=== PATIENT | female | born 1955 | race Caucasian/White ===

== ENCOUNTER → 2022-12-26 10:45 | Outpatient (BNVA) | payer MEDICARE, BC, SELFPAY | PROVIDERS: Family Provider Nurse Practitioner Family; PCP Nurse Practitioner Family; Visit Provider Nurse Practitioner Family | DX: R39.9 Unspecified symptoms and signs involving the genitourinary system (principal); I10 Essential (primary) hypertension; N39.0 Urinary tract infection, site not specified | CPT/HCPCS: 80053; 80061; 81003; 83735; 84443; 85025 ==

== ENCOUNTER → 2024-05-26 13:49 | Outpatient (BNVA) | payer MEDICARE, BC, SELFPAY | PROVIDERS: Family Provider Nurse Practitioner Family; PCP Nurse Practitioner Family; Visit Provider Nurse Practitioner Family | DX: J40 Bronchitis, not specified as acute or chronic (principal); J81.1 Chronic pulmonary edema | CPT/HCPCS: 71046 ==

== ENCOUNTER → 2024-05-28 08:52 | Outpatient (BNVA) | payer MEDICARE, BC, SELFPAY | PROVIDERS: Family Provider Nurse Practitioner Family; Visit Provider Nurse Practitioner Family | DX: I10 Essential (primary) hypertension (principal) | CPT/HCPCS: 80053; 84443; 85025 ==

== ENCOUNTER 2024-06-19 07:57 | Outpatient (CLI) | payer MEDICARE, BC, SELFPAY ==
--- NOTE | 2024-06-19 08:30 | USCV_ITS ---
James Livingston Age: 68 Gender: F : 1955 Exam Date: 06/19/2024 08:57 Ordering Phys: Michelle Tobar COUNTER HELP-C Technologist: Omar Durant Exam Location: [facility] [place] Indication: cardiomegaly BP: 150 / 112 HR: 103 Rhythm: Sinus Technical Quality: Adequate MEASUREMENTS (Male / Female) Normal Values 2D ECHO LV Diastolic Diameter PLAX 4.5 cm 4.2 - 5.9 / 3.9 - 5.3 cm IVS Diastolic Thickness 1.9 cm 0.6 - 1.0 / 0.6 - 0.9 cm IVS Systolic Thickness 1.9 cm LVPW Diastolic Thickness 1.7 cm 0.6 - 1.0 / 0.6 - 0.9 cm LVPW Systolic Thickness 2.0 cm LVOT Diameter 2.1 cm LV Ejection Fraction 2D Teich 72.9 % LV Ejection Fraction MOD 4C 76.1 % LV Ejection Fraction MOD 2C 72.2 % LV Ejection Fraction 2C AL 72.3 % LA Diameter 4.2 cm RA Systolic Volume 4C AL 28.2 ml RA Systolic Volume 4C MOD 28.3 ml LA Sys Volume AL 29.3 cm cubed LA Sys Volume Index AL 13.6 cm cubed/m squared Aorta at Sinotubular Diameter 2.4 cm IVC Diameter 1.5 cm M-MODE LA Ao Ratio MM 1.4 AV Cusp Separation MM 1.0 cm DOPPLER AV Peak Velocity 141.3 cm/s LVOT Peak Velocity 133.0 cm/s AV Area Cont Eq vti 3.7 cm squared AV Area Cont Eq pk 3.1 cm squared MV Peak Velocity 145.0 cm/s MV Area PHT 8.4 cm squared Mitral E to A Ratio 0.5 TV Peak Velocity 156.0 cm/s TR Peak Velocity 171.0 cm/s TR Peak Gradient 11.7 mmHg TR Mean Velocity 139.0 cm/s TR Mean Gradient 8.1 mmHg TR Velocity Time Integral 40.7 cm PV Peak Velocity 112.0 cm/s RV Ejection Time 0.2 s FINDINGS Left Ventricle Normal left ventricular size, systolic function and wall thickness, with no regional wall motion abnormalities. Left ventricular ejection fraction is estimated at 55%. Grade I/IV diastolic dysfunction (abnormal relaxation filling pattern), normal to mildly elevated filling pressures. Right Ventricle The right ventricle is normal in size and function. Right Atrium The right atrium is normal in size. Left Atrium The left atrium is normal in size. Mitral Valve Structurally normal mitral valve without significant stenosis or prolapse. There is no mitral regurgitation. Aortic Valve Structurally normal aortic valve without significant sclerosis or stenosis. There is no aortic regurgitation. Tricuspid Valve Structurally normal tricuspid valve without significant stenosis or regurgitation. Pulmonary artery systolic pressure is normal. Pulmonic Valve Structurally normal pulmonic valve without significant stenosis. There is no pulmonic regurgitation. Pericardium Normal pericardium without effusion. Aorta Normal ascending aorta dimension. IVC The inferior vena cava appears normal. CONCLUSIONS Normal left ventricular size, systolic function and wall thickness, with no regional wall motion abnormalities. Left ventricular ejection fraction is estimated at 55%. Grade I/IV diastolic dysfunction (abnormal relaxation filling pattern), normal to mildly elevated filling pressures. There is no pericardial effusion. No significant valve abnormalities. Right atrial pressure is around 5 mm of mercury. Vincent Oakes MD (Electronically Signed) Final Date: 19 June 2024 16:05 S
== END 2024-06-19 07:58 | disposition home or self-care (01) ==
PROVIDERS: Family Provider Nurse Practitioner Family; PCP Nurse Practitioner Family; Visit Provider Nurse Practitioner Family
DX: I51.7 Cardiomegaly (principal); R06.02 Shortness of breath; I10 Essential (primary) hypertension; R93.1 Abnormal findings on diagnostic imaging of heart and coronary circulation
CPT/HCPCS: 93306

== ENCOUNTER 2024-06-19 18:47 | Inpatient (IN) | payer MEDICARE, BC, SELFPAY ==
[2024-06-19] VITALS (14 sets, daily range): BP systolic 133–205; BP diastolic 75–112; PULSE 103–125; RESP 18–31; TEMP 36.4; O2SAT 74–94; BMI 40.2
--- NOTE | 2024-06-19 18:55 | ECG_ITS ---
[facility] Test Date: 2024-06-19 Pat Name: James Livingston Department: Room: Gender: Female Material Scheduler: : 1955 Requested By: Brandon Wilder Order Number: [id number] Paola MD: Alejandro Chatterjee M.D. Measurements Intervals [place] Rate: 124 P: 63 DE: 142 QRS: 36 QRSD: 86 T: 77 QT: 325 QTc: 467 Interpretive Statements SINUS TACHYCARDIA MODERATE ST DEPRESSION [0.05+ mV ST DEPRESSION] No previous ECG available for comparison Electronically Signed On 06-20-2024 13:17:44 MAGNET VALVE ASSEMBLER by Alejandro Chatterjee M.D. [email or web address]
--- NOTE | 2024-06-19 19:07 | XRR_ITS ---
PROCEDURE INFORMATION: Exam: XR Chest Exam date and time: 06/19/2024 7:23 PM Age: 68 years old Clinical indication: Cough and shortness of breath; SOB; Cough TECHNIQUE: Imaging protocol: Radiologic exam of the chest. Views: 1 view. COMPARISON: CR XR chest 2V* [id number] 05/26/2024 1:54 PM FINDINGS: Lungs: No focal consolidation. Pleural spaces: No evidence of pneumothorax. No evidence of pleural effusion. Heart/Mediastinum: Cardiomediastinal silhouette is within normal limits. Bones/joints: No evidence of acute osseous abnormality. XR/XR chest 1V portable [id number] IMPRESSION: 1. No acute cardiopulmonary abnormality.
--- NOTE | 2024-06-19 19:14 | ED_ITS ---
HPI - SOB/Dyspnea 2 General: Chief Complaint: Shortness of Breath/Dyspnea Stated Complaint: rapid Heart rate low o2 wheezing Time Seen by Provider: 06/19/24 19:06 History of Present Illness: HPI Narrative: 68-year-old female with a history of tob acco abuse in remission for 5 years, hypertension and obesity who presents to the emergency room with shortness of breath. She says this has been going on since about January but much worse over the last 2 weeks. She says she was not diagnosed with COPD, however recently she was started on albuterol and budesonide. She was also started on some Lasix. On presentation here she is hypoxic with O2 in the low 70s. She is tachycardic. She is hypertensive. She does not know of any fevers. Afebrile here. No lower extremity pain or swelling. No calf pain. She says her chest feels tight when she gets real short of breath but she has had no chest pain. Related Data Previous Rx's Medication Instructions Recorded omega-3 fatty acids 1,000 mg 1,000 mg PO DAILY #90 caps 01/03/23 capsule albuterol sulfate 90 mcg/actuation 2 puff inhalation QID PRN 05/06/24 aerosol inhaler shortness of breath or wheezing #6.7 grams doxycycline hyclate 100 mg capsule 100 mg PO BID #20 caps 05/06/24 losartan 50 mg tablet 50 mg PO DAILY #90 tabs 05/06/24 promethazine-DM 6.25 mg-15 mg/5 mL 5 - 10 ml PO Q6H PRN cough #240 mL 05/06/24 oral syrup albuterol sulfate 2.5 mg/3 mL 2.5 mg (3 mL) inhalation QID PRN 05/26/24 (0.083 %) solution for nebulization shortness of breath or wheezing #75 mL budesonide-formoterol HFA 160 2 puff inhalation BID #10.2 grams 05/26/24 mcg-4.5 mcg/actuation aerosol inhaler (Symbicort) levofloxacin 750 mg tablet 750 mg PO DAILY #7 tabs 05/26/24 furosemide 20 mg tablet 20 mg PO DAILY #30 tabs 05/28/24 potassium chloride 10 mEq 10 meq PO DAILY #30 tabs 05/28/24 tablet,extended release (Klor-Con) prednisone 20 mg tablet 20 mg PO BID #10 tabs 05/28/24 Allergies Allergy/AdvReac Type Severity Reaction Status Date / Time No Known Allergies Allergy Verified 06/19/24 18:54 Review of Systems 2 Narrative: Constitutional symptoms: Negative except as documented in HPI. Skin symptoms: Negative except as documented in HPI. Eye symptoms: Negative except as documented in HPI. ENMT symptoms: Negative except as documented in HPI. Respiratory symptoms: Negative except as documented in HPI. Cardiovascular symptoms: Negative except as documented in HPI. Gastrointestinal symptoms: Negative except as documented in HPI. Genitourinary symptoms: Negative except as documented in HPI. Musculoskeletal symptoms: Negative except as documented in HPI. Neurologic symptoms: Negative except as documented in HPI. Psychiatric symptoms: Negative except as documented in HPI. Endocrine symptoms: Negative except as documented in HPI. PFSH ED 2 PFSH: Social History Smoking and tobacco/nicotine status: former use of tobacco/nicotine Quit status (tobacco/nicotine): has quit using Year quit tobacco: 2018 Former quit date comment: ppd x 30 yrs Second hand smoke exposure: Yes Alcohol intake: never Lives independently: Yes Household members: none Marital status: / Current occupation: Part-time [employer] Current gender identity: Female Special parish needs: No Agree to transfusion: Yes Physical Exam 2 Narrative: EXAM NARRATIVE: General: Alert, moderate distress. Skin: Warm, dry. Head: Normocephalic, atraumatic. Neck: Supple, trachea midline. Eye: Extraocular movements are intact. Ears, nose, mouth and throat: Oral mucosa moist. Cardiovascular: Regular rate and rhythm, Normal peripheral perfusion. Respiratory: coarse, scattered wheeze, moderate increased wob. tachypnea, prolonged expiratory phase. breath sounds are equal, Symmetrical chest wall expansion. Gastrointestinal: Soft, Nontender, Non distended, Normal bowel sounds. Musculoskeletal: Normal ROM, no deformity. Neurological: Alert and oriented to person, place, time, and situation, No focal neurological deficit observed. Psychiatric: Cooperative, appropriate mood & affect. Course 2 Vital Signs: Vital signs: Vital Signs Temperature 97.6 F 06/19/24 18:54 Pulse Rate 117 H 06/19/24 20:49 Respiratory Rate 20 H 06/19/24 20:49 Blood Pressure 205/112 06/19/24 18:54 Pulse Oximetry 92 06/19/24 20:49 Oxygen Delivery Me thod Nasal Cannula 06/19/24 20:49 Oxygen Flow Rate 1 06/19/24 20:49 MDM - SOB/Dyspnea Medical Decision Making Differential diagnosis for patient with shortness of breath includes but is not limited to and based on the above HPI, review of systems and physical exam: Pneumonia. Bronchitis. Asthma or COPD with acute exacerbation. Acute coronary syndrome / IN. Pulmonary embolism. Anxiety. Congestive heart failure. Viral infections including influenza and Covid-19. Atrial fibrillation. Anxiety. Pleural effusion. Pneumothorax. Orders placed to evaluate differential diagnosis based on the above differential, HPI and physical exam EKG: Time 185. Rate 124. Sinus tachycardia, moderate diffuse ST depression, no ectopy, normal UT & QRS intervals, This was reviewed and interpreted by myself the ER physician at 1858 Chest x-ray: No acute process. No infiltrate. No pneumothorax. This was reviewed and interpreted by myself the emergency room physician. I also reviewed the radiology report. Lab Review: Laboratory results were reviewed and interpreted by myself the emergency room physician. Mild leukocytosis. No anemia. No renal failure. AB.3 with an O2 sat of 96% on 1 L. Although x-ray at this time she was receiving an updraft. I reviewed the patient's medical record. Reexamination: After breathing treatments patient still has moderate increased work of breathing, severe wheeze and tight lungs. She still requiring some oxygen. Apparently at rest she does improved some she is only requiring 1 L. However she was 74% on presentation. We discussed admission. She is not fond of this but she will come in. Consultation: I spoke with Dr. Stahl who is on-call for the hospitalist service who agrees to admission. Assessment and plan: COPD with acute exacerbation Hypoxemia ?IV Solu-Medrol, 2 updrafts. Requiring oxygen. -I discussed the patient with the hospitalist on-call who is admitting the patient. - Discussed findings and plan with patient. Answered any questions. - All laboratory values were reviewed and interpreted personally by myself, the ER physician - All imaging was reviewed and interpreted personally by myself, the ER physician. - Evaluation and treatment of this problem were appropriate in the emergency setting Critical care -I spent a total of >35 minutes of critical care time managing the patient, independent of any other practitioner. -The time involved in the performance of separately reportable procedures was not counted towards critical care time. Lab Data 06/19/24 19:20 06/19/24 19:20 Labs/Radiology: Radiology Impressions Chest X-Ray 06/19/24 19:07 IMPRESSION: 1. No acute cardiopulmonary abnormality. Laboratory Results WBC 12.17 10^3/uL (3.29-11.43) H 06/19/24 19:20 RBC 4.95 10^6/uL (3.85-5.65) 06/19/24 19:20 Hgb 14.20 g/dL (11.27-16.99) 06/19/24 19:20 Hct 43.9 % (36-47) 06/19/24 19:20 MCV 88.7 fl (85-98) 06/19/24 19:20 MCH 28.7 pg (27-33) 06/19/24 19:20 MCHC 32.3 g/dL (30-55) 06/19/24 19:20 RDW 12.8 % (12.1-15.1) 06/19/24 19:20 Plt Count 304 10^3/cmm (157-399) 06/19/24 19:20 MPV 9.2 fL (7.4-10.4) 06/19/24 19:20 Neut % (Auto) 60.1 % 06/19/24 19:20 Lymph % (Auto) 26.4 % 06/19/24 19:20 [place] % (Auto) 6.7 % 06/19/24 19:20 Eos % (Auto) 6.3 % 06/19/24 19:20 Baso % (Auto) 0.3 % 06/19/24 19:20 Neut # (Auto) 7.30 10^3/uL (1.8-7.7) 06/19/24 19:20 Lymph # (Auto) 3.2 10^3/uL (0.8-4.8) 06/19/24 19:20 [place] # (Auto) 0.8 10^3/uL (0.2-0.9) 06/19/24 19:20 Eos # (Auto) 0.8 10^3/uL (0.0-0.8) 06/19/24 19:20 Baso # (Auto) 0.0 10^3/uL (0.0-0.1) 06/19/24 19:20 Nucleated RBC % (auto) 0 % 06/19/24 19:20 Nucleated RBCs # 0.0 /100WBC 06/19/24 19:20 D-Dimer 0.68 ug/mLFEU (0-0.59) H 06/19/24 19:20 Specimen Type Arterial 06/19/24 20:48 Sample Site Brachial, right 06/19/24 20:48 ABG pH 7.37 (7.35-7.45) 06/19/24 20:48 ABG pCO2 50.3 mmHg (35-45) H 06/19/24 20:48 ABG pO2 64.5 mmHg (80.0-100.0) L 06/19/24 20:48 ABG HCO3 29.2 mmol/L (22-26) H 06/19/24 20:48 ABG O2 Saturation 92.8 06/19/24 20:48 ABG Base Excess 3.0 mmol/L (-2.0-2.0) H 06/19/24 20:48 Aleks Test Pos 06/19/24 20:48 A-a O2 Gradient 3.1 mmHg (5-10) L 06/19/24 20:48 Hematocrit 41.2 % (37-47) 06/19/24 20:48 Hgb O2 Saturation 96.0 % (95-100) 06/19/24 20:48 Carboxyhemoglobin 0.7 %THgb (0.4-20.1) 06/19/24 20:48 Methemoglobin < 0.0 % (0.4-1.5) L 06/19/24 20:48 Total Hemoglobin 13.4 g/dL (12-16) 06/19/24 20:48 Sodium 142.0 mmol/L (131-143) 06/19/24 20:48 Potassium 4.0 mmol/L (3.5-5.0) 06/19/24 20:48 Glucose 153.0 mg/dL (70-115) H 06/19/24 20:48 Ionized Calcium 1.2 mmol/L (1.1-1.4) 06/19/24 20:48 O2 Delivery Device Nc 06/19/24 20:48 O2 Liters/Min 1.0 % 06/19/24 20:48 Cured Meat Packing Supervisor ID [email or web address] 06/19/24 20:48 Sodium 140 mmol/L (136-145) 06/19/24 19:20 Potassium 3.9 mmol/L (3.5-5.1) 06/19/24 19:20 Chloride 101 mmol/L (98-107) 06/19/24 19:20 Carbon Dioxide 24 mmol/L (22-29) 06/19/24 19:20 Anion Gap 18.9 (5-19) 06/19/24 19:20 BUN 16 mg/dL (8-23) 06/19/24 19:20 Creatinine 0.5 mg/dL (0.5-0.9) 06/19/24 19:20 GFR Calculation 122.3 mL/min (90-130) 06/19/24 19:20 Glucose 159 mg/dL (65-115) H 06/19/24 19:20 Calculated Osmolality 295 mOsm/kg (285-295) 06/19/24 19:20 Lactic Acid 1.4 mmol/L (0.5-2.2) 06/19/24 19:20 Calcium 9.4 mg/dL (8.5-10.5) 06/19/24 19:20 Total Bilirubin 0.4 mg/dL (0.15-1.2) 06/19/24 19:20 AST 26 U/L (0-32) 06/19/24 19:20 ALT 26 U/L (0-33) 06/19/24 19:20 Alkaline Phosphatase 93 U/L (35-105) 06/19/24 19:20 Troponin T Baseline 10 ng/L (0-10) 06/19/24 19:20 C-Reactive Protein 19.2 mg/L (0.0-4.9) H 06/19/24 19:20 Total Protein 7.5 g/dL (6.6-8.7) 06/19/24 19:20 Albumin 4.3 g/dL (3.5-5.2) 06/19/24 19:20 Globulin 3.2 g/dL (1.3-4.6) 06/19/24 19:20 Procalcitonin 0.05 ng/mL (0-0.5) 06/19/24 19:20 All radiology interpretation(s) finalized by discharge Discharge Plan Discharge Patient Disposition: Admitted As Inpatient Clinical Impression: COPD with acute exacerbation, Hypoxemia Condition: Stable Coding Level of Care Code ED Client Project Coordinator for Keke Parra
[2024-06-19 19:39] LABS: Basophils % 0.3 %; Eosinophils # 0.8 10^3/uL (0.0-0.8); Eosinophils % 6.3 %; Hematocrit 43.9 % (36-47); Lymphocytes # 3.2 10^3/uL (0.8-4.8); Lymphocytes % 26.4 %; Mean Corpuscular HGB Conc 32.3 g/dL (30-55); Mean Corpuscular Hemoglobin 28.7 pg (27-33); Mean Corpuscular Volume 88.7 fl (85-98); Mean Platelet Volume 9.2 fL (7.4-10.4); Monocytes # 0.8 10^3/uL (0.2-0.9); Monocytes % 6.7 %; Neutrophils % 60.1 %; Nucleated Red Blood Cells % 0 %; Platelet Count 304 10^3/cmm (157-399); Red Blood Count 4.95 10^6/uL (3.85-5.65); Red Cell Distribution Width 12.8 % (12.1-15.1); White Blood Count 12.17 10^3/uL (3.29-11.43)
[2024-06-19 19:47] LABS: D Dimer 0.68 ug/mLFEU (0-0.59)
[2024-06-19 19:49] LABS: Lactic Sepsis W/Reflex 1.4 mmol/L (0.5-2.2)
[2024-06-19 19:51] LABS: Troponin(5th) Baseline 10 ng/L (0-10)
[2024-06-19 20:01] LABS: Procalcitonin 0.05 ng/mL (0-0.5)
[2024-06-19 20:12] LABS: Alanine Aminotransferase 26 U/L (0-33); Albumin Level 4.3 g/dL (3.5-5.2); Alkaline Phosphatase 93 U/L (35-105); Anion Gap 18.9 (5-19); Aspartate Amino Transferase 26 U/L (0-32); Blood Urea Nitrogen 16 mg/dL (8-23); C Reactive Protein 19.2 mg/L (0.0-4.9); Calcium 9.4 mg/dL (8.5-10.5); Carbon Dioxide 24 mmol/L (22-29); Chloride 101 mmol/L (98-107); Creatinine Clr Calc Pharmacy 73.3169; Globulin 3.2 g/dL (1.3-4.6); Glomerular Filtration Rate 122.3 mL/min (90-130); Glucose 159 mg/dL (65-115); Osmolality Calculated 295 mOsm/kg (285-295); Potassium 3.9 mmol/L (3.5-5.1); Sodium 140 mmol/L (136-145); Total Bilirubin 0.4 mg/dL (0.15-1.2); Total Protein 7.5 g/dL (6.6-8.7)
[2024-06-19] MEDS: methylPREDNISolone sod succ 125 mg/2 mL INJ IVP (20:43)
[2024-06-19] MEDS: ipratropium-albuterol 3 mL Neb INHALATION (20:43)
[2024-06-19] MEDS: albuterol 2.5 mg/3 mL Neb INHALATION (20:43)
[2024-06-19 20:54] LABS: ABG PCO2 50.3 mmHg (35-45); ABG PH Result 7.37 (7.35-7.45); Alveolar-Arterial Oxygen Gradi 3.1 mmHg (5-10); Arterial Blood Gas Hematocrit 41.2 % (37-47); Blood Gas Allen Test Pos; Blood Gas Sample Site Brachial, right; Blood Gas Sample Type Arterial; Carboxyhemoglobin 0.7 %THgb (0.4-20.1); HCO3 ABG 29.2 mmol/L (22-26); Ionized Calcium Level - ABG 1.2 mmol/L (1.1-1.4); Methemoglobin < 0.0 % (0.4-1.5); Oxygen Device NC; Oxygen Saturation ABG 92.8; PO2 ABG 64.5 mmHg (80.0-100.0); Total Hemoglobin 13.4 g/dL (12-16)
[2024-06-19 21:18] LABS: Troponin 5 2HR 11.57 ng/L (0-10); Troponin 5 2HR Delta 1.57 ABS# (0-10)
[2024-06-19 21:30] LABS: Covid PCR NEGATIVE (Negative); Influenza A NEGATIVE (Negative); Influenza B NEGATIVE (Negative); Respiratory Syncytial Virus Ce NEGATIVE (Negative)
[2024-06-19 22:30] LABS: Bilirubin Urine Negative (Negative); Blood Urine Negative (Negative); Glucose Urine UA Negative (Normal); Ketones Urine Trace (Negative); Leukocyte Esterase Urine Negative (Negative); Nitrate Urine Negative (Negative); Protein Urine 1+ (Negative); Specific Gravity, Urine 1.025 (1.005-1.030); Urine Appearance Turbid (CLEAR); pH Urine 5.5 (5-7)
[2024-06-19 22:35] LABS: Bacteria Urine Trace /hpf; Hyaline Casts Urine 0.81 /lpf; RBC Urine 0-2 /hpf (0-2); Universal Test for UA Present (0)
--- NOTE | 2024-06-19 22:44 | P.HP_ITS ---
Providers/Chief Complaint 2 Admitting Physician: Vincent Stahl MD Primary Care Provider: SPENCER Waldrop-Lucy Chief Complaint: rapid Heart rate low o2 wheezing History of Present Illness James Livingston is a 68 year old female who does not have official diagnosis of COPD, quit smoking 5 years ago, has not done a pulmonary function test, has had multiple rounds of antibiotics and steroids since January presenting with worsening of shortness of breath. Patient was extremely wheezing with increased work of breathing in the ER patient received the treatment and wheezing improved at the time of evaluation she is on 2 L nasal cannula. Patient is not endorsing significantly high fever, endorsing excessive coughing, urine incontinence with cough, pleuritic pain, excessive wheezing at minimal exertion. Patient is stating that before January 2024 she was very active after ID infection she has not been very active. Does not use oxygen at baseline. In past few weeks she has had multiple rounds of antibiotics and steroids. Every time she uses steroid she will get better and then at the end she will get worse. She has been put on budesonide inhaler by the PCP. Along albuterol. She is still not on appropriate inhaler regimen considering underlying COPD. At the time of evaluation I have requested D-dimer however secondary to recurrent infections needing antibiotics and steroids I would request CT chest Patient is afebrile at the time of my evaluation, count 2 L no active chest pain or worsening shortness of breath Patient recently finished steroid course Patient was asking if she could be discharged in the morning Resp panel is negative Review of Systems 2 Const: Reports: fever(s) and chills Eyes: Denies: change in vision ENMT: Denies: throat pain Card: Denies: chest pain Resp: Reports: dyspnea GI: Denies: abdominal pain : Denies: flank pain Musc: Reports: back pain Medications/Allergies Home Medications Medication Instructions Recorded Confirmed Last Taken Type omega-3 fatty acids 1,000 mg 1,000 mg PO DAILY #90 caps 01/03/23 05/28/24 Unknown Rx capsule albuterol sulfate 90 mcg/actuation 2 puff inhalation QID PRN 05/06/24 05/28/24 Unknown Rx aerosol inhaler shortness of breath or wheezing #6.7 grams doxycycline hyclate 100 mg capsule 100 mg PO BID #20 caps 05/06/24 05/28/24 Unknown Rx losartan 50 mg tablet 50 mg PO DAILY #90 tabs 05/06/24 05/28/24 Unknown Rx promethazine-DM 6.25 mg-15 mg/5 mL 5 - 10 ml PO Q6H PRN cough #240 mL 05/06/24 05/28/24 Unknown Rx oral syrup albuterol sulfate 2.5 mg/3 mL 2.5 mg (3 mL) inhalation QID PRN 05/26/24 05/28/24 Unknown Rx (0.083 %) solution for nebulization shortness of breath or wheezing #75 mL budesonide-formoterol HFA 160 2 puff inhalation BID #10.2 grams 05/26/24 05/28/24 Unknown Rx mcg-4.5 mcg/actuation aerosol inhaler (Symbicort) levofloxacin 750 mg tablet 750 mg PO DAILY #7 tabs 05/26/24 05/28/24 Unknown Rx furosemide 20 mg tablet 20 mg PO DAILY #30 tabs 05/28/24 05/28/24 Unknown Rx potassium chloride 10 mEq 10 meq PO DAILY #30 tabs 05/28/24 05/28/24 Unknown Rx tablet,extended release (Klor-Con) prednisone 20 mg tablet 20 mg PO BID #10 tabs 05/28/24 05/28/24 Unknown Rx Allergies Allergy/AdvReac Type Severity Reaction Status Date / Time No Known Allergies Allergy Verified 06/19/24 18:54 PFSH Acute 2 PFSH: Medical History (Updated 06/19/24 @ 23:09 by Vincent Stahl MD) Influenza A Social History Smoking and tobacco/nicotine status: former use of tobacco/nicotine Quit status (tobacco/nicotine): has quit using Year quit tobacco: 2019 Former quit date comment: ppd x 30 yrs Second hand smoke exposure: Yes Alcohol intake: never Lives independently: Yes Household members: none Marital status: / Current occupation: Part-time [employer] Current gender identity: Female Special parish needs: No Agree to transfusion: Yes Vitals/I&O/Wt Last Vital Signs Temp 97.6 F 06/19/24 18:54 Pulse 105 H 06/19/24 21:44 Resp 31 H 06/19/24 21:44 BP 152/98 06/19/24 21:44 Pulse Ox 92 06/19/24 21:44 O2 Del Method Nasal Cannula 06/19/24 20:49 O2 Flow Rate 1 06/19/24 20:49 06/19/24 06/19/24 06/19/24 06:59 14:59 22:59 Intake Total 0 / 0 Balance 0 / 0 Weight last 48 hrs Weight 99.79 kg Physical Exam 2 Narrative: Awake and alert Tachycardia Shortness of breath on minimal exertion Currently on 2 L Mild wheezing with diminished airflow at the base of the lungs Pleasant and cooperative Anxious. 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 Patient still not on appropriate inhalers She will need combination of LAMA LABA ICS For now secondary tachycardia we will put her on ipratropium, Xopenex and budesonide Add IV steroids Request CT chest for tachycardia Tachycardia could be related to use of albuterol Chest x-ray does not show any infiltrate Hold off on antibiotics for now Respiratory panel is negative Will request BNP: Patient stating that her echo was done in the morning, echo showing 55% EF with grade 1 diastolic function: Patient will need home oxygen evaluation at the time of discharge Full code Cardiac diet Continue antihypertensive regimen for essential hypertension history Attestations 2 Medical Necessity Statement*: Anticipating discharge within 48 hours Diagnoses Hypertension I10 COPD with acute exacerbation J44.1 Hypoxemia R09.02
[2024-06-19 23:09] LABS: Urine Color Orange (Yellow)
[2024-06-19 23:10] LABS: Add Urine Culture? No
[2024-06-19] MEDS: ipratropium 0.5 mg/2.5 mL Neb INHALATION (23:36)
[2024-06-19] MEDS: levalbuterol 1.25 mg/3 mL Neb INHALATION (23:36)
[2024-06-19] MEDS: guaiFENesin-codeine UDC 10 mL 5 ML PO (23:41)
[2024-06-19] MEDS: dilTIAZem ER (12HR) 60 mg Capsule PO (23:41)
[2024-06-19] MEDS: acetaminophen 500 mg Tablet PO (23:41)
[2024-06-20] VITALS (13 sets, daily range): BP systolic 131–178; BP diastolic 61–89; PULSE 71–110; RESP 15–20; TEMP 36.4–37.1; O2SAT 91–96
[2024-06-20 00:11] LABS: NT Pro B Type Natriuretic Pept 238 pg/mL (0-125); Thyroid Stimulating Hormone 0.82 uIU/mL (0.27-4.20)
[2024-06-20 00:23] LABS: Estmated Average Glucose 160; Hemoglobin A1C 7.2 % (4.0-6.0)
[2024-06-20 02:15] LABS: Troponin 5 6HR 8.78 ng/L (0-10)
[2024-06-20 02:18] LABS: Troponin 5 6HR Delta -1.22 ng/L (0-12)
[2024-06-20] MEDS: ipratropium 0.5 mg/2.5 mL Neb INHALATION ×5 (03:33→21:39)
[2024-06-20 05:07] LABS: Vitamin B12 1188 pg/mL (232-1245)
[2024-06-20 05:29] LABS: Basophils % 0.2 %; Eosinophils % 0.1 %; Hematocrit 43.5 % (36-47); Lymphocytes % 11.4 %; Mean Corpuscular HGB Conc 31.3 g/dL (30-55); Mean Corpuscular Hemoglobin 28.8 pg (27-33); Mean Platelet Volume 9.5 fL (7.4-10.4); Monocytes # 0.1 10^3/uL (0.2-0.9); Monocytes % 0.5 %; Neutrophils # 7.97 10^3/uL (1.8-7.7); Neutrophils % 87.5 %; Nucleated Red Blood Cells % 0 %; Platelet Count 300 10^3/cmm (157-399); Red Blood Count 4.73 10^6/uL (3.85-5.65); Red Cell Distribution Width 12.8 % (12.1-15.1); White Blood Count 9.12 10^3/uL (3.29-11.43)
[2024-06-20 05:57] LABS: Anion Gap 18.3 (5-19); Blood Urea Nitrogen 16 mg/dL (8-23); C Reactive Protein 21.2 mg/L (0.0-4.9); Calcium 9.6 mg/dL (8.5-10.5); Carbon Dioxide 24 mmol/L (22-29); Chloride 98 mmol/L (98-107); Glomerular Filtration Rate 99.1 mL/min (90-130); Glucose 248 mg/dL (65-115); Magnesium 2.1 mg/dL (1.7-2.3); Osmolality Calculated 291 mOsm/kg (285-295); Potassium 4.3 mmol/L (3.5-5.1); Sodium 136 mmol/L (136-145)
--- NOTE | 2024-06-20 08:00 | CTR_ITS ---
PROCEDURE INFORMATION: Exam: CTA Chest With Contrast Exam date and time: 06/20/2024 7:53 AM Age: 68 years old Clinical indication: Hyperventilation; Additional info: Hypoxia TECHNIQUE: Imaging protocol: Computed tomographic angiography of the chest with contrast. Exam focused on the arteries. 3D rendering (Not supervised by radiologist): MIP and/or 3D reconstructed images were created by the technologist. Radiation optimization: All CT scans at this facility use at least one of these dose optimization techniques: automated exposure control; mA and/or kV adjustment per patient size (includes targeted exams where dose is matched to clinical indication); or iterative reconstruction. Contrast material: OMNIPAQUE 350; Contrast volume: 80 ml; Contrast route: INTRAVENOUS (IV); COMPARISON: CR (CHEST, ) 06/19/2024 7:23 PM RADIATION DOSE METRICS: Total DLP (mGy-cm): 486.92 FINDINGS: Pulmonary arteries: Dilated right pulmonary artery suggestive of pulmonary hypertension. No pulmonary emboli. Aorta: Unremarkable. No aortic aneurysm. No aortic dissection. Other arteries: Calcified atheromas of the visualized arteries. Lungs: Unremarkable. No consolidation. No masses. Pleural spaces: Unremarkable. No pneumothorax. No pleural effusion. Heart: Unremarkable. No cardiomegaly. No pericardial effusion. Coronary arteries: There is moderate atherosclerotic calcification of the coronary arteries. Lymph nodes: Unremarkable. No enlarged lymph nodes. Liver: There is a diffuse decrease in hepatic parenchymal density, consistent with fatty infiltration. Bones/joints: The thoracic spine demonstrates mild degenerative changes at multiple levels. There are mild degenerative changes of the glenohumeral joint. Soft tissues: Right erector spinae lipoma measuring 5.7 x 2[address]/CT angio chest PE protcl [id number] IMPRESSION: 1. No pulmonary embolism. 2. No acute infiltrates. 3. Hepatic steatosis.
[2024-06-20] MEDS: iohexol 350 mg/mL 500 mL Btl (per mL) IV (08:01)
[2024-06-20] MEDS: levalbuterol 1.25 mg/3 mL Neb INHALATION ×4 (08:56→21:39)
[2024-06-20] MEDS: budesonide 0.5 mg/2 mL Neb INHALATION ×2 (08:56→21:39)
[2024-06-20] MEDS: sennosides-docusate Tablet 2 TAB PO (09:26)
[2024-06-20] MEDS: dilTIAZem ER (12HR) 60 mg Capsule PO ×2 (09:26→17:13)
[2024-06-20] MEDS: methylPREDNISolone sod succ 40 mg/mL INJ IVP ×2 (09:27→17:12)
[2024-06-20] MEDS: losartan 50 mg Tablet PO (09:31)
--- NOTE | 2024-06-20 11:35 | PC.CHAP ---
Pastoral Care Encounter/Spiritual Assessment Type of Contact [] Declined shingles roofer helper visit [] Patient/Family/Request visit [] Outpatient visit [] Follow-up visit [] Physician referral [] Code/Alert [X] Routine visit [] Staff referral [] Actively dying [] Patient sleeping [] Family support [] [] Out of room [] Palliative care [] [] Receiving care in room [] Pre-surgical visit [] Trauma [] Long length of stay [] ICU visit [] Other: Relational/Emotional Strength [X] Patient feels connected with others/family/visitors/staff [] Distress [] Loneliness/isolation [] Abandonment Spirituality of Patient [X] Person of [place] [X] Attends Catholic of their [place] [X] Believes in Prayer [X] Reads Bible or Denominational materials [] There are Spiritual issues to be addressed General Science Teacher Interventions [X] Prayer [X] Active listening [X] Non-anxious presence [] Spiritual/emotional support [] Crisis/trauma care [] Spiritual counseling [] Bereavement support [] Provided bereavement packet [] Provided Bible/devotional materials [] Provided toy/stuffed animal, coloring book to patient or family member [] Provided Communion [] Anointing/[place] [] Salvation [] Completed spiritual assessment [] Other: Impact on Illness or Injury [] Angry [] Fearful [] Anxious [] Often cries [] Exhaustion [] Unable to work [] Unable to attend hinduism [] Unable to walk/stand [] Unable to read [] Unable to drive [] Unable to eat/drink [] Unable to sleep [] Unable to be with family [] Patient intubated [] Other: Summary Prayer + Staff Time spent with patient 20 Min
[2024-06-20] MEDS: acetaminophen 500 mg Tablet PO ×2 (13:45→19:10)
[2024-06-20] MEDS: guaiFENesin 100 mg/5 mL UDC 10 mL 200 MG PO ×2 (13:58→17:13)
--- NOTE | 2024-06-20 16:54 | PM.PN ---
Subjective Subjective: Seen this morning. No acute events overnight. CTA chest ruled out PE Patient is on 2 L nasal cannula. He saturating 94%. Is bringing up brown phlegm. Negative for COVID flu RSV. Vitals/I&O/Wt Last Vital Signs Temp 98.3 F 06/20/24 12:00 Pulse 101 H 06/20/24 16:16 Resp 20 H 06/20/24 16:16 BP 154/71 06/20/24 12:00 Pulse Ox 94 06/20/24 16:16 O2 Del Method Nasal Cannula 06/20/24 16:16 O2 Flow Rate 2 06/20/24 16:16 06/20/24 06/20/24 06/20/24 06:59 14:59 22:59 Intake Total 360 / 360 Balance 360 / 360 Weight last 48 hrs Weight 104.553 kg Weight 99.79 kg Weight 99.79 kg Physical Exam Narrative: Awake and alert Regular rate rhythm. Shortness of breath on minimal exertion Currently on 2 L Mild wheezing with diminished airflow at the base of the lungs, rhonchi present throughout lung perez. Pleasant and cooperative Anxious. S1, S2 Abdomen soft No significant swelling of lower extremity Trace edema noted Data 06/20/24 04:30 06/20/24 04:30 Micro: Microbiology 06/19/24 19:23 Blood Culture - Preliminary Blood SPECIMEN COLLECTED 06/19/24 19:20 Blood Culture - Preliminary Blood SPECIMEN COLLECTED A&P Assessment and plan (1) Hypertension: (2) COPD with acute exacerbation: (3) Hypoxemia: Plan Acute hypoxia Underlying COPD Does not have pulmonary function test has not seen a irrigating pump operator Patient still not on appropriate inhalers She will need combination of LAMA LABA ICS For now secondary tachycardia we will put her on ipratropium, Xopenex and budesonide Add IV steroids Request CT chest for tachycardia Tachycardia could be related to use of albuterol Chest x-ray does not show any infiltrate Hold off on antibiotics for now Respiratory panel is negative Will request BNP: Patient stating that her echo was done in the morning, echo showing 55% EF with grade 1 diastolic function: Patient will need home oxygen evaluation at the time of discharge Full code Cardiac diet Continue antihypertensive regimen for essential hypertension history 06/20/2024 Recommended patient to continue hospitalization today for management of COPD exacerbation. She gets significant wheezes and rhonchi. Bringing up brown phlegm at this time. I will continue Solu-Medrol 40 every 8 hours and add Levaquin. Patient will need pulmonology follow-up at discharge. ? Check sputum culture Gram stain Attestations Medical Necessity Statement*: Anticipating discharge within 48 hours Diagnoses Hypertension I10 COPD with acute exacerbation J44.1 Hypoxemia R09.02
[2024-06-20] MEDS: sodium chloride 0.9% 1,000 ML 100 ML IV (17:12)
[2024-06-20] MEDS: levofloxacin-dextrose 5 % 750 MG/150 ML PREMIX 100 MG IV (20:49)
[2024-06-21] VITALS (21 sets, daily range): BP systolic 118–183; BP diastolic 61–94; PULSE 83–137; RESP 16–23; TEMP 36.6–36.9; O2SAT 86–96
[2024-06-21] MEDS: methylPREDNISolone sod succ 40 mg/mL INJ IVP ×3 (00:32→17:09)
[2024-06-21] MEDS: ipratropium 0.5 mg/2.5 mL Neb INHALATION ×6 (01:30→23:08)
[2024-06-21] MEDS: levalbuterol 1.25 mg/3 mL Neb INHALATION ×6 (01:30→23:08)
[2024-06-21 04:15] LABS: Basophils % 0.1 %; Lymphocytes # 1.5 10^3/uL (0.8-4.8); Lymphocytes % 9.3 %; Mean Corpuscular HGB Conc 31.2 g/dL (30-55); Mean Corpuscular Hemoglobin 28.8 pg (27-33); Mean Corpuscular Volume 92.3 fl (85-98); Mean Platelet Volume 9.9 fL (7.4-10.4); Monocytes # 0.5 10^3/uL (0.2-0.9); Neutrophils # 14.16 10^3/uL (1.8-7.7); Nucleated Red Blood Cells % 0 %; Platelet Count 303 10^3/cmm (157-399); Red Blood Count 4.66 10^6/uL (3.85-5.65); Red Cell Distribution Width 13.2 % (12.1-15.1); White Blood Count 16.27 10^3/uL (3.29-11.43)
[2024-06-21] MEDS: guaiFENesin 100 mg/5 mL UDC 10 mL 200 MG PO ×2 (04:33→20:23)
[2024-06-21] MEDS: sodium chloride 0.9% 1,000 ML 100 ML IV (04:33)
[2024-06-21 05:00] LABS: Anion Gap 20.1 (5-19); Blood Urea Nitrogen 15 mg/dL (8-23); Calcium 9.3 mg/dL (8.5-10.5); Carbon Dioxide 22 mmol/L (22-29); Chloride 102 mmol/L (98-107); Glomerular Filtration Rate 99.1 mL/min (90-130); Glucose 186 mg/dL (65-115); Magnesium 2.2 mg/dL (1.7-2.3); Osmolality Calculated 296 mOsm/kg (285-295); Potassium 4.1 mmol/L (3.5-5.1); Sodium 140 mmol/L (136-145)
[2024-06-21] MEDS: acetaminophen 500 mg Tablet PO ×2 (06:02→11:06)
[2024-06-21] MEDS: budesonide 0.5 mg/2 mL Neb INHALATION ×2 (07:43→19:29)
[2024-06-21] MEDS: losartan 50 mg Tablet PO (09:22)
[2024-06-21] MEDS: amlodipine 10 mg Tablet PO (09:22)
--- NOTE | 2024-06-21 10:39 | PM.DCS ---
Discharge Providers Date of Admission: 06/19/24 21:09 Date of Discharge: June 21, 2024 Attending Provider at Admission: Vincetn Stahl MD Attending Provider at Discharge: Suzanne Altman MD Primary Care Provider: JENELLE Waldrop Diagnoses at Discharge Discharge Diagnosis (1) Hypertension: Status: Acute (2) COPD with acute exacerbation: Status: Acute (3) Hypoxemia: Status: Acute Reason for Visit Reason for Visit: rapid Heart rate low o2 wheezing Discharge Data Studies Completed and Pending Completed Studies During Hospitalization Category Date Time Status CT angio chest PE protcl [id number] Stat Cat Scan 06/20/24 08:00 Completed XR chest 1V portable [id number] Stat Exams 06/19/24 19:07 Completed Pending at discharge Category Date Time Status Blood Culture Stat Lab 06/19/24 19:23 Results Sputum Culture and Gram Stain Routine Lab 06/19/24 22:46 Uncollected Radiology Impressions Chest X-Ray 06/19/24 19:07 IMPRESSION: 1. No acute cardiopulmonary abnormality. Chest CTA 06/20/24 08:00 IMPRESSION: 1. No pulmonary embolism. 2. No acute infiltrates. 3. Hepatic steatosis. Laboratory Results WBC 16.27 10^3/uL (3.29-11.43) H 06/21/24 03:52 RBC 4.66 10^6/uL (3.85-5.65) 06/21/24 03:52 Hgb 13.40 g/dL (11.27-16.99) 06/21/24 03:52 Hct 43.0 % (36-47) 06/21/24 03:52 MCV 92.3 fl (85-98) 06/21/24 03:52 MCH 28.8 pg (27-33) 06/21/24 03:52 MCHC 31.2 g/dL (30-55) 06/21/24 03:52 RDW 13.2 % (12.1-15.1) 06/21/24 03:52 Plt Count 303 10^3/cmm (157-399) 06/21/24 03:52 MPV 9.9 fL (7.4-10.4) 06/21/24 03:52 Neut % (Auto) 87.0 % 06/21/24 03:52 Lymph % (Auto) 9.3 % 06/21/24 03:52 [place] % (Auto) 3.0 % 06/21/24 03:52 Eos % (Auto) 0.0 % 06/21/24 03:52 Baso % (Auto) 0.1 % 06/21/24 03:52 Neut # (Auto) 14.16 10^3/uL (1.8-7.7) H 06/21/24 03:52 Lymph # (Auto) 1.5 10^3/uL (0.8-4.8) 06/21/24 03:52 [place] # (Auto) 0.5 10^3/uL (0.2-0.9) 06/21/24 03:52 Eos # (Auto) 0.0 10^3/uL (0.0-0.8) 06/21/24 03:52 Baso # (Auto) 0.0 10^3/uL (0.0-0.1) 06/21/24 03:52 Nucleated RBC % (auto) 0 % 06/21/24 03:52 Nucleated RBCs # 0.0 /100WBC 06/21/24 03:52 D-Dimer 0.68 ug/mLFEU (0-0.59) H 06/19/24 19:20 Specimen Type Arterial 06/19/24 20:48 Sample Site Brachial, right 06/19/24 20:48 ABG pH 7.37 (7.35-7.45) 06/19/24 20:48 ABG pCO2 50.3 mmHg (35-45) H 06/19/24 20:48 ABG pO2 64.5 mmHg (80.0-100.0) L 06/19/24 20:48 ABG HCO3 29.2 mmol/L (22-26) H 06/19/24 20:48 ABG O2 Saturation 92.8 06/19/24 20:48 ABG Base Excess 3.0 mmol/L (-2.0-2.0) H 06/19/24 20:48 Aleks Test Pos 06/19/24 20:48 A-a O2 Gradient 3.1 mmHg (5-10) L 06/19/24 20:48 Hematocrit 41.2 % (37-47) 06/19/24 20:48 Hgb O2 Saturation 96.0 % (95-100) 06/19/24 20:48 Carboxyhemoglobin 0.7 %THgb (0.4-20.1) 06/19/24 20:48 Methemoglobin < 0.0 % (0.4-1.5) L 06/19/24 20:48 Total Hemoglobin 13.4 g/dL (12-16) 06/19/24 20:48 Sodium 142.0 mmol/L (131-143) 06/19/24 20:48 Potassium 4.0 mmol/L (3.5-5.0) 06/19/24 20:48 Glucose 153.0 mg/dL (70-115) H 06/19/24 20:48 Ionized Calcium 1.2 mmol/L (1.1-1.4) 06/19/24 20:48 O2 Delivery Device Nc 06/19/24 20:48 O2 Liters/Min 1.0 % 06/19/24 20:48 Director Of Manufacturing ID [email or web address] 06/19/24 20:48 Sodium 140 mmol/L (136-145) 06/21/24 03:52 Potassium 4.1 mmol/L (3.5-5.1) 06/21/24 03:52 Chloride 102 mmol/L (98-107) 06/21/24 03:52 Carbon Dioxide 22 mmol/L (22-29) 06/21/24 03:52 Anion Gap 20.1 (5-19) H 06/21/24 03:52 BUN 15 mg/dL (8-23) 06/21/24 03:52 Creatinine 0.6 mg/dL (0.5-0.9) 06/21/24 03:52 GFR Calculation 99.1 mL/min (90-130) 06/21/24 03:52 Glucose 186 mg/dL (65-115) H 06/21/24 03:52 Estimat Average Glucose 160 06/19/24 23:13 Hemoglobin A1c 7.2 % (4.0-6.0) H 06/19/24 23:13 Calculated Osmolality 296 mOsm/kg (285-295) H 06/21/24 03:52 Lactic Acid 1.4 mmol/L (0.5-2.2) 06/19/24 19:20 Calcium 9.3 mg/dL (8.5-10.5) 06/21/24 03:52 Phosphorus 3.0 mg/dL (2.5-4.5) 06/19/24 23:08 Magnesium 2.2 mg/dL (1.7-2.3) 06/21/24 03:52 Total Bilirubin 0.4 mg/dL (0.15-1.2) 06/19/24 19:20 AST 26 U/L (0-32) 06/19/24 19:20 ALT 26 U/L (0-33) 06/19/24 19:20 Alkaline Phosphatase 93 U/L (35-105) 06/19/24 19:20 Troponin T Baseline 10 ng/L (0-10) 06/19/24 19:20 Troponin T 120 Minute 11.57 ng/L (0-10) H 06/19/24 20:51 Delta Troponin T 1.57 ABS# (0-10) 06/19/24 20:51 Troponin T Hi Sens 6Hr 8.78 ng/L (0-10) 06/20/24 01:41 Troponin T Hi Sens 6Hr Delta -1.22 ng/L (0-12) L 06/20/24 01:41 C-Reactive Protein 21.2 mg/L (0.0-4.9) H 06/20/24 04:30 NT-Pro-B Natriuret Pep 238 pg/mL (0-125) H 06/19/24 23:08 Total Protein 7.5 g/dL (6.6-8.7) 06/19/24 19:20 Albumin 4.3 g/dL (3.5-5.2) 06/19/24 19:20 Globulin 3.2 g/dL (1.3-4.6) 06/19/24 19:20 Vitamin B12 1188 pg/mL (232-1245) 06/19/24 23:08 Procalcitonin 0.05 ng/mL (0-0.5) 06/19/24 19:20 TSH 0.82 uIU/mL (0.27-4.20) 06/19/24 23:08 Urine Color [place] (Yellow) A 06/19/24 22:19 Urine Appearance Turbid (CLEAR) A 06/19/24 22:19 Urine pH 5.5 (5-7) 06/19/24 22:19 Ur Specific [place] 1.025 (1.005-1.030) 06/19/24 22:19 Urine Protein 1+ (Negative) A 06/19/24 22:19 Urine Glucose (UA) Negative (Normal) 06/19/24 22:19 Urine Ketones Trace (Negative) 06/19/24 22:19 Urine Blood Negative (Negative) 06/19/24 22:19 Urine Nitrate Negative (Negative) 06/19/24 22:19 Urine Bilirubin Negative (Negative) 06/19/24 22:19 Urine Urobilinogen 1.0 mg/dL (Negative) 06/19/24 22:19 Ur Leukocyte Esterase Negative (Negative) 06/19/24 22:19 Urine RBC 0-2 /hpf (0-2) 06/19/24 22:19 Urine WBC 6-10 /hpf (0-5) 06/19/24 22:19 Ur Squamous Epith Cells 6-10 /hpf (0-5) 06/19/24 22:19 Amorphous Sediment Not Reportable 06/19/24 22:19 Urine Bacteria Trace /hpf (NONE) 06/19/24 22:19 Hyaline Casts 0.81 /lpf 06/19/24 22:19 Coronavirus (PCR) Negative (Negative) 06/19/24 20:35 Influenza A (PCR) Negative (Negative) 06/19/24 20:35 Influenza Type B (PCR) Negative (Negative) 06/19/24 20:35 RSV (PCR) Negative (Negative) 06/19/24 20:35 Vitals Last Vital Signs Temp 98.2 F 06/21/24 07:55 Pulse 97 06/21/24 07:55 Resp 18 06/21/24 07:55 BP 183/94 06/21/24 09:22 Pulse Ox 92 06/21/24 10:12 O2 Del Method Nasal Cannula 06/21/24 07:55 O2 Flow Rate 2 06/21/24 10:12 Discharge Plan Discharge Patient Disposition: Home Condition: Stable Prescriptions: New amlodipine 10 mg Tablet 10 mg PO DAILY Qty: 30 0RF prednisone 20 mg tablet 40 mg PO DAILY 4 Days Qty: 16 0RF benzonatate 100 mg Capsule 200 mg PO Q8H PRN (Reason: Cough) Qty: 10 0RF levofloxacin 750 mg tablet 750 mg PO DAILY 6 Days Qty: 6 0RF Anoro Ellipta 62.5-25 mcg/actuation blister with device 1 inh inhalation DAILY Qty: 60 0RF ipratropium-albuterol 0.5 mg-3 mg(2.5 mg base)/3 mL solution for nebulization 3 ml inhalation Q8H PRN (Reason: shortness of breath or wheezing) Qty: 90 0RF Continued potassium chloride [Klor-Con 10] 10 mEq tablet extended release 10 meq PO DAILY Qty: 30 2RF furosemide 20 mg tablet 20 mg PO DAILY Qty: 30 2RF losartan 50 mg tablet 50 mg PO DAILY Qty: 90 3RF omega-3 fatty acids 1,000 mg capsule 1,000 mg PO DAILY Qty: 90 0RF multivitamin [Daily Multi-Vitamin] Tablet 1 tab PO DAILY aspirin 81 mg Tablet,Delayed Release (Dr/Ec) 81 mg PO DAILY albuterol sulfate 90 mcg/actuation HFA aerosol inhaler 2 puff inhalation QID PRN (Reason: shortness of breath or wheezing) Qty: 6.7 0RF Discontinued albuterol sulfate 2.5 mg /3 mL (0.083 %) solution for nebulization 2.5 mg inhalation QID PRN (Reason: shortness of breath or wheezing) Qty: 75 5RF Discharge Orders: Discharge Order (Routine); Ordered 06/21/24 Ordered By: Suzanne Altman Other Ambulatory Orders: DME: Oxygen (Order) Location: None Selected Ordered By: Suzanne Altman Referrals: Michelle Tobar FNP-C [Primary Care Provider] - 4-7 days (We have notified your physician's clinic of the need for a follow-up appointment to be scheduled. If you have not heard from them within the next 2 business days, please call them directly. ) Kitty Garcia MD [Occupational Therapist] - 7-10 days (COPD) Discharge Diet: Cardiac Discharge Activity: Oxygen as instructed Patient Instructions: Opioid Safety Coding Level of Care Code Acute Code for Chg Fwd Diagnoses Hypertension I10 COPD with acute exacerbation J44.1 Hypoxemia R09.02
[2024-06-21] MEDS: hyDRALAzine 20 mg/mL INJ 1 mL 5 MG IVP (11:01)
--- NOTE | 2024-06-21 11:54 | ECG_ITS ---
[facility] Date[facility] 2024-[facility]21 Pat Name: James Livingston Department: Room: 276 Gender: Female Ocular Care Technologist: : 1955 Requested By: Suzanne Altman Order Number: [id number] Paola MD: Alejandro Chatterjee M.D. Measurements Intervals [place] Rate: 137 P: 57 MA: 128 QRS: 31 QRSD: 89 T: 95 QT: 302 QTc: 457 Interpretive Statements SINUS TACHYCARDIA NONSPECIFIC ST & T-WAVE ABNORMALITY Compared to ECG 06/19/2024 18:55:45 T-wave abnormality now present ST (T wave) deviation no longer present Electronically Signed On 06-25-2024 22:10:47 INFORMATICS COORDINATOR by Alejandro Chatterjee M.D. [id number]
--- NOTE | 2024-06-21 12:16 | XRR_ITS ---
PROCEDURE INFORMATION: Exam: XR Chest Exam date and time: 06/21/2024 12:31 PM Age: 68 years old Clinical indication: Shortness of breath; Additional info: Elevated hr and BP with SOB TECHNIQUE: Imaging protocol: Radiologic exam of the chest. Views: 1 view. COMPARISON: CT angio chest PE protcl [id number] 06/20/2024 7:53 AM FINDINGS: Lungs: Unremarkable. No consolidation. Pleural spaces: Unremarkable. No pleural effusion. No pneumothorax. Heart/Mediastinum: Unremarkable. No cardiomegaly. Bones/joints: Unremarkable. XR/XR chest 1V portable [id number] IMPRESSION: No acute findings.
[2024-06-21 12:46] LABS: Troponin(5th) Baseline 9 ng/L (0-10)
--- NOTE | 2024-06-21 13:32 | ECG_ITS ---
[facility] Test Date: 2024-06-21 Pat Name: James Livingston Department: Room: 276 Gender: Female Oral Surgery Assistant: : 1955 Requested By: Suzanne Altman Order Number: [id number] Paola MD: Alejandro Chatterjee M.D. Measurements Intervals [place] Rate: 131 P: 54 CT: 140 QRS: -2 QRSD: 84 T: 56 QT: 305 QTc: 452 Interpretive Statements SINUS TACHYCARDIA MINIMAL ST DEPRESSION [0.025+ mV ST DEPRESSION] Compared to ECG 06/21/2024 12:12:51 ST (T wave) deviation now present T-wave abnormality no longer present Electronically Signed On 06-25-2024 22:25:24 MATERIAL CHASER by Alejandro Chatterjee M.D. [email or web address] [id number]
[2024-06-21] MEDS: LORazepam 2 mg/mL INJ 1 mL 0.5 MG IVP (13:33)
[2024-06-21 14:20] LABS: Troponin 5 2HR 9.25 ng/L (0-10); Troponin 5 2HR Delta 0.25 ABS# (0-10)
--- NOTE | 2024-06-21 15:02 | P.PN_ITS ---
Subjective 2 Subjective: Seen this morning. Initially plan to send patient home however patient having high blood pressure and sinus tachycardia. Chest x-ray ordered, hydralazine ordered. D-dimer has been requested. Overall states she feels better. Vitals/I&O/Wt Last Vital Signs Temp 98.5 F 06/21/24 11:25 Pulse 137 H 06/21/24 11:45 Resp 22 H 06/21/24 11:45 BP 175/83 06/21/24 11:45 Pulse Ox 95 06/21/24 11:25 O2 Del Method Nasal Cannula 06/21/24 11:25 O2 Flow Rate 2 06/21/24 10:12 06/21/24 06/21/24 06/21/24 06:59 14:59 22:59 Intake Total 1000 / 2350 480 / 480 Balance 1000 / 2350 480 / 480 Weight last 48 hrs Weight 109.372 kg Weight 104.553 kg Weight 99.79 kg Weight 99.79 kg Physical Exam 2 Narrative: Awake and alert Regular rate rhythm. Currently on 2 L Mild wheezing with diminished airflow at the base of the lungs, rhonchi present throughout lung perez. Slightly improved since yesterday. Pleasant and cooperative S1, S2 Abdomen soft No significant swelling of lower extremity Trace edema noted Data 06/21/24 03:52 06/21/24 03:52 Micro: Microbiology 06/19/24 19:23 Blood Culture - Preliminary Blood NEGATIVE TO DATE 06/19/24 19:20 Blood Culture - Preliminary Blood NEGATIVE TO DATE A&P Assessment and plan (1) Hypertension: (2) COPD with acute exacerbation: (3) Hypoxemia: Plan Acute hypoxia Underlying COPD Does not have pulmonary function test has not seen a electrocardiogram technician Patient still not on appropriate inhalers She will need combination of LAMA LABA ICS For now secondary tachycardia we will put her on ipratropium, Xopenex and budesonide Add IV steroids Request CT chest for tachycardia Tachycardia could be related to use of albuterol Chest x-ray does not show any infiltrate Hold off on antibiotics for now Respiratory panel is negative Will request BNP: Patient stating that her echo was done in the morning, echo showing 55% EF with grade 1 diastolic function: Patient will need home oxygen evaluation at the time of discharge Full code Cardiac diet Continue antihypertensive regimen for essential hypertension history 06/20/2024 Recommended patient to continue hospitalization today for management of COPD exacerbation. She gets significant wheezes and rhonchi. Bringing up brown phlegm at this time. I will continue Solu-Medrol 40 every 8 hours and add Levaquin. Patient will need pulmonology follow-up at discharge. ? Check sputum culture Gram stain 06/21/2024 Continue IV steroids. Continue Levaquin. Patient with the LAMA LABA at discharge along with albuterol. Eosinophil count is 0. I will hold off on adding ICS as per new guidelines. ? Sputum culture Gram stain is pending at this time. ? Patient on losartan 50 at home. ? Have ordered hydralazine 5 IV x 1 this a.m. Add amlodipine 10 daily ? Patient experiencing quite a bit of anxiety. Have ordered Xanax 0.5 x 1. ? Ordered labetalol 10 IV x 1. - Stop IV fluids. ? Will qualify for 2 L nasal cannula at discharge. ? Troponin series has been ordered. Initial troponin 9.25. Subsequent troponins are pending. ? Continue to monitor patient at this time. Attestations 2 Medical Necessity Statement*: Requires continued hospitalization for hypertensive urgency. Patient is tachycardic. Diagnoses Hypertension I10 COPD with acute exacerbation J44.1 Hypoxemia R09.02
[2024-06-21 15:49] LABS: D Dimer 0.53 ug/mLFEU (0-0.59)
--- NOTE | 2024-06-21 17:08 | ECG_ITS ---
[facility] Test Date: 2024-06-21 Pat Name: James Livingston Department: Room: 276 Gender: Female Naval Gunfire Liaison Officer: : 1955 Requested By: Suzanne Altman Order Number: [id number] Paola MD: Alejandro Chatterjee M.D. Measurements Intervals [place] Rate: 111 P: 60 NC: 143 QRS: 26 QRSD: 99 T: 47 QT: 354 QTc: 483 Interpretive Statements SINUS TACHYCARDIA ABNORMAL RHYTHM ECG Compared to ECG 06/21/2024 13:32:26 ST (T wave) deviation no longer present Electronically Signed On 06-25-2024 22:24:53 MOLDER MACHINE by Alejandro Chatterjee M.D. [email or web address] [id number]
[2024-06-21 18:42] LABS: Troponin 5 6HR 12.87 ng/L (0-10); Troponin 5 6HR Delta 3.87 ng/L (0-12)
[2024-06-21] MEDS: levofloxacin-dextrose 5 % 750 MG/150 ML PREMIX 100 MG IV (20:17)
[2024-06-21] MEDS: dilTIAZem 30 mg Tablet PO (21:07)
[2024-06-21] MEDS: enoxaparin 40 mg/0.4 mL Syringe SUBCUT (22:50)
[2024-06-21] MEDS: ALPRAZolam 0.5 mg Tablet PO (22:50)
[2024-06-22] VITALS (17 sets, daily range): BP systolic 117–138; BP diastolic 62–84; PULSE 72–116; RESP 17–20; TEMP 36.4–37.3; O2SAT 91–96
[2024-06-22] MEDS: methylPREDNISolone sod succ 40 mg/mL INJ IVP ×3 (02:58→18:28)
[2024-06-22] MEDS: ipratropium 0.5 mg/2.5 mL Neb INHALATION ×5 (03:04→20:37)
[2024-06-22] MEDS: levalbuterol 1.25 mg/3 mL Neb INHALATION ×5 (03:04→20:37)
[2024-06-22 05:37] LABS: Basophils % 0.1 %; Hematocrit 40.4 % (36-47); Lymphocytes # 1.2 10^3/uL (0.8-4.8); Mean Corpuscular HGB Conc 30.7 g/dL (30-55); Mean Corpuscular Hemoglobin 28.8 pg (27-33); Mean Platelet Volume 9.5 fL (7.4-10.4); Monocytes # 0.6 10^3/uL (0.2-0.9); Monocytes % 3.8 %; Neutrophils # 12.99 10^3/uL (1.8-7.7); Neutrophils % 87.5 %; Nucleated Red Blood Cells % 0 %; Platelet Count 260 10^3/cmm (157-399); Red Cell Distribution Width 13.6 % (12.1-15.1); White Blood Count 14.84 10^3/uL (3.29-11.43)
[2024-06-22 05:49] LABS: Blood Urea Nitrogen 17 mg/dL (8-23); Calcium 9.2 mg/dL (8.5-10.5); Carbon Dioxide 27 mmol/L (22-29); Chloride 101 mmol/L (98-107); Creatinine Clr Calc Pharmacy 77.3327; Glomerular Filtration Rate 122.3 mL/min (90-130); Glucose 161 mg/dL (65-115); Magnesium 2.2 mg/dL (1.7-2.3); Osmolality Calculated 291 mOsm/kg (285-295); Sodium 138 mmol/L (136-145)
[2024-06-22] MEDS: budesonide 0.5 mg/2 mL Neb INHALATION ×2 (07:34→20:37)
[2024-06-22] MEDS: dilTIAZem 30 mg Tablet PO (08:29)
[2024-06-22] MEDS: amlodipine 10 mg Tablet PO (08:29)
[2024-06-22] MEDS: losartan 50 mg Tablet PO (08:29)
[2024-06-22] MEDS: ALPRAZolam 0.5 mg Tablet PO (12:12)
--- NOTE | 2024-06-22 13:05 | PC.SOCIAL ---
IMM update pg 2 of IMM updated and reviewed w/ patient. Copy provided and copy dated, initialed and placed in chart.
[2024-06-22] MEDS: FUROsemide 10 mg/mL SDV 4mL 40 MG IVP (13:32)
[2024-06-22 14:02] LABS: Procalcitonin 0.03 ng/mL (0-0.5); Vitamin B12 834 pg/mL (232-1245)
[2024-06-22 14:13] LABS: Iron 101 ug/dL (37-145)
[2024-06-22 15:08] LABS: Total Iron Binding Capacity 252 mcg/dl; Unsaturated Iron Binding 151 ug/dL (112-347)
--- NOTE | 2024-06-22 18:42 | P.PN_ITS ---
Subjective 2 Subjective: Hospital course, labs appreciated. Seen with multiple family was at bedside. Patient sitting up in chair. On 2 L of oxygen supplementation. Denies of having any nausea, vomiting. Did complain of difficulty in breathing while taking shower. As per family member patient did have difficulty in breathing while coming back from the shower to bed and did have episode of choking during the same time. Patient states she is comfortable and wants to go home. Vitals/I&O/Wt Last Vital Signs Temp 97.7 F 06/22/24 18:00 Pulse 111 H 06/22/24 18:00 Resp 19 H 06/22/24 18:00 BP 117/67 06/22/24 18:00 Pulse Ox 94 06/22/24 18:00 O2 Del Method Nasal Cannula 06/22/24 18:00 O2 Flow Rate 2 06/22/24 16:22 06/22/24 06/22/24 06/22/24 06:59 14:59 22:59 Intake Total 840 / 840 360 / 1200 Balance 840 / 840 360 / 1200 Weight last 48 hrs Weight 109.372 kg Weight 109.372 kg Physical Exam 2 Narrative: General: No acute distress, AO x3, anxious HEENT: PERRLA, pupils bilaterally equal and reactive Chest: Bilateral bronchial breath sounds all over lung perez with occasional rhonchi spread all over lung perez with wheezing, no crackles CVS: S1-S2 regular, no murmurs, tachycardia, no gallops, no rubs Abdomen: Soft, nontender, no organomegaly, bowel sounds present Neuro: No focal deficits, no facial deformity, AO x3, power 5/5 in all limbs Data 06/22/24 05:21 06/22/24 05:21 A&P Assessment and plan (1) Hypoxemia: Setting of COPD exacerbation. COVID-19, flu, RSV negative on admission. Oxygen supplementation keeping saturation over 90%. Patient will possibly need a repeat home O2 evaluation prior to discharge. (2) COPD with acute exacerbation: Chronic smoker. No official diagnosis. Will most likely need a pulmonary function test as an outpatient. Solu-Medrol to be weaned to 40 mg IV twice daily. Ipratropium, Xopenex every 6 hour, Pulmicort twice daily. Most likely patient will need to be discharged on slow steroid taper as an outpatient. Low concern for superadded bacterial infection for now. Sputum culture not collected. Check procalcitonin. Continue with Levaquin check MRSA swab. Empirically start patient on linezolid for now. If MRSA swab negative will discontinue linezolid. Echocardiogram done shows an EF of 55% grade 1 diastolic dysfunction. (3) Hypertension: Blood pressure is elevated. Goal blood pressure less than 140/90 mmHg Increase dose of losartan to 100 mg oral daily. Start on metoprolol 25 mg twice daily. Plan Full code Lovenox for DVT prophylaxis Famotidine for PUD prophylaxis. Attestations 2 Medical Necessity Statement*: Requested hospitalization for management of hypoxia in setting of COPD exacerbation, uncontrolled hypertension Diagnoses Hypoxemia R09.02 COPD with acute exacerbation J44.1 Hypertension I10
[2024-06-22] MEDS: levofloxacin-dextrose 5 % 750 MG/150 ML PREMIX 100 MG IV (19:33)
[2024-06-22] MEDS: metoprolol tartrate 25 mg Tablet PO (19:33)
[2024-06-22] MEDS: linezolid 600 mg Tablet PO (19:33)
[2024-06-22] MEDS: enoxaparin 40 mg/0.4 mL Syringe SUBCUT (22:11)
[2024-06-23] VITALS (9 sets, daily range): BP systolic 120–159; BP diastolic 71–92; PULSE 74–93; RESP 16–20; TEMP 36.5–37.1; O2SAT 92–96
[2024-06-23] MEDS: ipratropium 0.5 mg/2.5 mL Neb INHALATION ×3 (00:52→07:36)
[2024-06-23] MEDS: levalbuterol 1.25 mg/3 mL Neb INHALATION ×3 (00:52→07:36)
[2024-06-23 06:03] LABS: Basophils % 0.1 %; Hematocrit 44.5 % (36-47); Lymphocytes # 1.9 10^3/uL (0.8-4.8); Lymphocytes % 11.9 %; Mean Corpuscular HGB Conc 32.4 g/dL (30-55); Mean Corpuscular Hemoglobin 29.2 pg (27-33); Mean Corpuscular Volume 90.3 fl (85-98); Mean Platelet Volume 9.1 fL (7.4-10.4); Neutrophils # 12.83 10^3/uL (1.8-7.7); Nucleated Red Blood Cells % 0 %; Platelet Count 345 10^3/cmm (157-399); Red Blood Count 4.93 10^6/uL (3.85-5.65); Red Cell Distribution Width 13.4 % (12.1-15.1); White Blood Count 15.84 10^3/uL (3.29-11.43)
[2024-06-23 06:34] LABS: Alanine Aminotransferase 30 U/L (0-33); Albumin Level 4.1 g/dL (3.5-5.2); Alkaline Phosphatase 94 U/L (35-105); Anion Gap 15.5 (5-19); Aspartate Amino Transferase 23 U/L (0-32); Blood Urea Nitrogen 20 mg/dL (8-23); Calcium 9.7 mg/dL (8.5-10.5); Carbon Dioxide 29 mmol/L (22-29); Chloride 98 mmol/L (98-107); Creatinine Clr Calc Pharmacy 77.3327; Globulin 3.1 g/dL (1.3-4.6); Glomerular Filtration Rate 99.1 mL/min (90-130); Glucose 141 mg/dL (65-115); Osmolality Calculated 291 mOsm/kg (285-295); Potassium 4.5 mmol/L (3.5-5.1); Sodium 138 mmol/L (136-145); Total Bilirubin 0.3 mg/dL (0.15-1.2); Total Protein 7.2 g/dL (6.6-8.7)
[2024-06-23 06:35] LABS: Chol HDL Ratio 3.25 mg/dL (0.0-4.40); Cholesterol 234 mg/dL (0-200); HDL Cholesterol 72 mg/dL (60-100); LDL Cholesterol Calculated 131 mg/dL (50-129); Magnesium 2.4 mg/dL (1.7-2.3); Triglycerides 157 mg/dL (0-150); VLDL Cholestrol Calculation 31 mg/dL (0-30)
[2024-06-23] MEDS: budesonide 0.5 mg/2 mL Neb INHALATION (07:36)
[2024-06-23] MEDS: methylPREDNISolone sod succ 40 mg/mL INJ IVP (08:38)
[2024-06-23] MEDS: metoprolol tartrate 25 mg Tablet PO (08:38)
[2024-06-23] MEDS: sennosides-docusate Tablet 2 TAB PO (08:39)
[2024-06-23] MEDS: losartan 50 mg Tablet 100 MG PO (08:39)
[2024-06-23 09:23] LABS: MRSA PCR OZH (swab) NOT DETECTED (Not Detecte)
--- NOTE | 2024-06-23 10:14 | PC.CHAP ---
Pastoral Care Encounter/Spiritual Assessment Type of Contact [] Declined information architect visit [] Patient/Family/Request visit [] Outpatient visit [] Follow-up visit [] Physician referral [] Code/Alert [x] Routine visit [] Staff referral [] Actively dying [] Patient sleeping [x] Family support [] [] Out of room [] Palliative care [] [] Receiving care in room [] Pre-surgical visit [] Trauma [] Long length of stay [] ICU visit [] Other: Relational/Emotional Strength [x] Patient feels connected with others/family/visitors/staff [] Distress [] Loneliness/isolation [] Abandonment Spirituality of Patient [x] Person of [place] [] Attends Synagogue of their [place] [x] Believes in Prayer [] Reads Bible or Christian materials [] There are Spiritual issues to be addressed Rn Surgery Icu Interventions [x] Prayer [x] Active listening [x] Non-anxious presence [x] Spiritual/emotional support [] Crisis/trauma care [] Spiritual counseling [] Bereavement support [] Provided bereavement packet [] Provided Bible/devotional materials [] Provided toy/stuffed animal, coloring book to patient or family member [] Provided Communion [] Anointing/Elizabeth [] Salvation [x Completed spiritual assessment [] Other: Impact on Illness or Injury [] Angry [] Fearful [] Anxious [] Often cries [] Exhaustion [] Unable to work [] Unable to attend mandaeism [] Unable to walk/stand [] Unable to read [] Unable to drive [] Unable to eat/drink [] Unable to sleep [] Unable to be with family [] Patient intubated [] Other: Summary Time spent with patient 5 min
--- NOTE | 2024-06-23 10:23 | XRR_ITS ---
PROCEDURE INFORMATION: Exam: XR Chest Exam date and time: 06/23/2024 10:39 AM Age: 68 years old Clinical indication: Shortness of breath; Additional info: Lung sounds TECHNIQUE: Imaging protocol: Radiologic exam of the chest. Views: 1 view. COMPARISON: CR (CHEST, ) 06/21/2024 12:31 PM FINDINGS: Lungs: Unremarkable. No consolidation. Pleural spaces: Unremarkable. No pleural effusion. No pneumothorax. Heart/Mediastinum: Cardiac silhouette appears mildly enlarged on this portable chest. Bones/joints: Unremarkable. XR/XR chest 1V portable [id number] IMPRESSION: Mild cardiomegaly otherwise negative chest.
--- NOTE | 2024-06-23 11:35 | PM.DCS ---
Discharge Providers Date of Admission: 06/20/24 19:50 Date of Discharge: June 23, 2024 Attending Provider at Admission: Vincent Stahl MD Attending Provider at Discharge: Cole Guerrero MD Primary Care Provider: JENELLE Waldrop Diagnoses at Discharge Discharge Diagnosis (1) Hypoxemia: Status: Acute (2) COPD with acute exacerbation: Status: Acute (3) Hypertension: Status: Acute Reason for Visit Reason for Visit: rapid Heart rate low o2 wheezing Brief History: History as per HPI: James Livingston is a 68 year old female who does not have official diagnosis of COPD, quit smoking 5 years ago, has not done a pulmonary function test, has had multiple rounds of antibiotics and steroids since January presenting with worsening of shortness of breath. Patient was extremely wheezing with increased work of breathing in the ER patient received the treatment and wheezing improved at the time of evaluation she is on 2 L nasal cannula. Patient is not endorsing significantly high fever, endorsing excessive coughing, urine incontinence with cough, pleuritic pain, excessive wheezing at minimal exertion. Patient is stating that before January 2024 she was very active after infection she has not been very active. Does not use oxygen at baseline. In past few weeks she has had multiple rounds of antibiotics and steroids. Every time she uses steroid she will get better and then at the end she will get worse. She has been put on budesonide inhaler by the PCP. Along albuterol. She is still not on appropriate inhaler regimen considering underlying COPD. At the time of evaluation I have requested D-dimer however secondary to recurrent infections needing antibiotics and steroids I would request CT chest Patient is afebrile at the time of my evaluation, count 2 L no active chest pain or worsening shortness of breath Patient recently finished steroid course Patient was asking if she could be discharged in the morning Resp panel is negative Hospital Course Hospital Course For further evaluation and management of hypoxia in setting of COPD exacerbation. He was started on nebulization treatment, systemic steroids. Echocardiogram was done which showed normal EF. During hospitalization she was found to have tachycardia with elevated blood pressures for which her antihypertensive were adjusted. Home O2 evaluation has been done prior to discharge. She has been discharged in hemodynamically stable condition. She is to follow-up with her PCP within next 1 week for possible PFT as an outpatient. Patient would benefit with a follow-up with pulmonary team as an outpatient. Going forward she used to take losartan 100 mg oral daily, metoprolol 25 mg twice daily. She is to continue nebulization treatment with DuoNeb every 8 hour, Pulmicort twice daily for next 2 weeks after which she should start her home inhaler as before. She has been discharged on oral antibiotics for 3 days along with steroid taper. Physical Exam Narrative: General: No acute distress, AO x3, anxious HEENT: PERRLA, pupils bilaterally equal and reactive Chest: Bilateral bronchial breath sounds all over lung perez with occasional rhonchi spread all over lung perez with wheezing, no crackles CVS: S1-S2 regular, no murmurs, tachycardia, no gallops, no rubs Abdomen: Soft, nontender, no organomegaly, bowel sounds present Neuro: No focal deficits, no facial deformity, AO x3, power 5/5 in all limbs Discharge Data Studies Completed and Pending Completed Studies During Hospitalization Category Date Time Status CT angio chest PE protcl [id number] Stat Cat Scan 06/20/24 08:00 Completed CXRP [XR chest 1V portable [id number]] Stat Exams 06/21/24 12:16 Completed XR chest 1V portable [id number] Routine Exams 06/23/24 10:23 Completed XR chest 1V portable [id number] Stat Exams 06/19/24 19:07 Completed Pending at discharge Category Date Time Status Blood Culture Stat Lab 06/19/24 19:23 Results MAG [Magnesium] AM LABS Lab 06/24/24 04:00 Ordered MAG [Magnesium] AM LABS Lab 06/25/24 04:00 Ordered Sputum Culture and Gram Stain Routine Lab 06/19/24 22:46 Uncollected Radiology Impressions Chest CTA 06/20/24 08:00 IMPRESSION: 1. No pulmonary embolism. 2. No acute infiltrates. 3. Hepatic steatosis. Chest X-Ray 06/23/24 10:23 IMPRESSION: Mild cardiomegaly otherwise negative chest. Laboratory Results WBC 15.84 10^3/uL (3.29-11.43) H 06/23/24 05:42 RBC 4.93 10^6/uL (3.85-5.65) 06/23/24 05:42 Hgb 14.40 g/dL (11.27-16.99) 06/23/24 05:42 Hct 44.5 % (36-47) 06/23/24 05:42 MCV 90.3 fl (85-98) 06/23/24 05:42 MCH 29.2 pg (27-33) 06/23/24 05:42 MCHC 32.4 g/dL (30-55) D 06/23/24 05:42 RDW 13.4 % (12.1-15.1) 06/23/24 05:42 Plt Count 345 10^3/cmm (157-399) D 06/23/24 05:42 MPV 9.1 fL (7.4-10.4) 06/23/24 05:42 Neut % (Auto) 81.0 % 06/23/24 05:42 Lymph % (Auto) 11.9 % 06/23/24 05:42 [place] % (Auto) 6.0 % 06/23/24 05:42 Eos % (Auto) 0.0 % 06/23/24 05:42 Baso % (Auto) 0.1 % 06/23/24 05:42 Neut # (Auto) 12.83 10^3/uL (1.8-7.7) H 06/23/24 05:42 Lymph # (Auto) 1.9 10^3/uL (0.8-4.8) 06/23/24 05:42 [place] # (Auto) 1.0 10^3/uL (0.2-0.9) H 06/23/24 05:42 Eos # (Auto) 0.0 10^3/uL (0.0-0.8) 06/23/24 05:42 Baso # (Auto) 0.0 10^3/uL (0.0-0.1) 06/23/24 05:42 Nucleated RBC % (auto) 0 % 06/23/24 05:42 Nucleated RBCs # 0.0 /100WBC 06/23/24 05:42 D-Dimer 0.53 ug/mLFEU (0-0.59) 06/21/24 15:17 Specimen Type Arterial 06/19/24 20:48 Sample Site Brachial, right 06/19/24 20:48 ABG pH 7.37 (7.35-7.45) 06/19/24 20:48 ABG pCO2 50.3 mmHg (35-45) H 06/19/24 20:48 ABG pO2 64.5 mmHg (80.0-100.0) L 06/19/24 20:48 ABG HCO3 29.2 mmol/L (22-26) H 06/19/24 20:48 ABG O2 Saturation 92.8 06/19/24 20:48 ABG Base Excess 3.0 mmol/L (-2.0-2.0) H 06/19/24 20:48 Aleks Test Pos 06/19/24 20:48 A-a O2 Gradient 3.1 mmHg (5-10) L 06/19/24 20:48 Hematocrit 41.2 % (37-47) 06/19/24 20:48 Hgb O2 Saturation 96.0 % (95-100) 06/19/24 20:48 Carboxyhemoglobin 0.7 %THgb (0.4-20.1) 06/19/24 20:48 Methemoglobin < 0.0 % (0.4-1.5) L 06/19/24 20:48 Total Hemoglobin 13.4 g/dL (12-16) 06/19/24 20:48 Sodium 142.0 mmol/L (131-143) 06/19/24 20:48 Potassium 4.0 mmol/L (3.5-5.0) 06/19/24 20:48 Glucose 153.0 mg/dL (70-115) H 06/19/24 20:48 Ionized Calcium 1.2 mmol/L (1.1-1.4) 06/19/24 20:48 O2 Delivery Device Nc 06/19/24 20:48 O2 Liters/Min 1.0 % 06/19/24 20:48 Foreman/[employer] ID [email or web address] 06/19/24 20:48 Sodium 138 mmol/L (136-145) 06/23/24 05:42 Potassium 4.5 mmol/L (3.5-5.1) 06/23/24 05:42 Chloride 98 mmol/L (98-107) 06/23/24 05:42 Carbon Dioxide 29 mmol/L (22-29) 06/23/24 05:42 Anion Gap 15.5 (5-19) 06/23/24 05:42 BUN 20 mg/dL (8-23) 06/23/24 05:42 Creatinine 0.6 mg/dL (0.5-0.9) 06/23/24 05:42 GFR Calculation 99.1 mL/min (90-130) 06/23/24 05:42 Glucose 141 mg/dL (65-115) H 06/23/24 05:42 Estimat Average Glucose 160 06/19/24 23:13 Hemoglobin A1c 7.2 % (4.0-6.0) H 06/19/24 23:13 Calculated Osmolality 291 mOsm/kg (285-295) 06/23/24 05:42 Lactic Acid 1.4 mmol/L (0.5-2.2) 06/19/24 19:20 Calcium 9.7 mg/dL (8.5-10.5) 06/23/24 05:42 Phosphorus 3.0 mg/dL (2.5-4.5) 06/19/24 23:08 Magnesium 2.4 mg/dL (1.7-2.3) H 06/23/24 05:42 Iron 101 ug/dL (37-145) 06/22/24 05:21 TIBC 252 mcg/dl 06/22/24 05:21 % Saturation 40.0 % (20-50) 06/22/24 05:21 Unsat Iron Binding 151 ug/dL (112-347) 06/22/24 05:21 Total Bilirubin 0.3 mg/dL (0.15-1.2) 06/23/24 05:42 AST 23 U/L (0-32) 06/23/24 05:42 ALT 30 U/L (0-33) 06/23/24 05:42 Alkaline Phosphatase 94 U/L (35-105) 06/23/24 05:42 Troponin T Baseline 9 ng/L (0-10) 06/21/24 12:17 Troponin T 120 Minute 9.25 ng/L (0-10) 06/21/24 13:49 Delta Troponin T 0.25 ABS# (0-10) 06/21/24 13:49 Troponin T Hi Sens 6Hr 12.87 ng/L (0-10) H 06/21/24 18:11 Troponin T Hi Sens 6Hr Delta 3.87 ng/L (0-12) 06/21/24 18:11 C-Reactive Protein 21.2 mg/L (0.0-4.9) H 06/20/24 04:30 NT-Pro-B Natriuret Pep 238 pg/mL (0-125) H 06/19/24 23:08 Total Protein 7.2 g/dL (6.6-8.7) 06/23/24 05:42 Albumin 4.1 g/dL (3.5-5.2) 06/23/24 05:42 Globulin 3.1 g/dL (1.3-4.6) 06/23/24 05:42 Triglycerides 157 mg/dL (0-150) H 06/23/24 05:42 Cholesterol 234 mg/dL (0-200) H 06/23/24 05:42 LDL Cholesterol, Calc 131 mg/dL (50-129) H 06/23/24 05:42 Total VLDL Cholesterol 31 mg/dL (0-30) H 06/23/24 05:42 HDL Cholesterol 72 mg/dL (60-100) 06/23/24 05:42 Cholesterol/HDL Ratio 3.25 mg/dL (0.0-4.40) 06/23/24 05:42 Vitamin B12 834 pg/mL (232-1245) 06/22/24 05:21 Folate 19.0 ng/mL (4.8-37.3) 06/23/24 05:42 Procalcitonin 0.03 ng/mL (0-0.5) 06/22/24 05:21 TSH 0.82 uIU/mL (0.27-4.20) 06/19/24 23:08 Urine Color [place] (Yellow) A 06/19/24 22:19 Urine Appearance Turbid (CLEAR) A 06/19/24 22:19 Urine pH 5.5 (5-7) 06/19/24 22:19 Ur Specific [place] 1.025 (1.005-1.030) 06/19/24 22:19 Urine Protein 1+ (Negative) A 06/19/24 22:19 Urine Glucose (UA) Negative (Normal) 06/19/24 22: Urine Ketones Trace (Negative) 06/19/24 22:19 Urine Blood Negative (Negative) 06/19/24 22:19 Urine Nitrate Negative (Negative) 06/19/24 22: Urine Bilirubin Negative (Negative) 06/19/24 22: Urine Urobilinogen 1.0 mg/dL (Negative) 06/19/24 22:19 Ur Leukocyte Esterase Negative (Negative) 06/19/24 22:19 Urine RBC 0-2 /hpf (0-2) 06/19/24 22:19 Urine WBC 6-10 /hpf (0-5) 06/19/24 22:19 Ur Squamous Epith Cells 6-10 /hpf (0-5) 06/19/24 22:19 Amorphous Sediment Not Reportable 06/19/24 22:19 Urine Bacteria Trace /hpf (NONE) 06/19/24 22:19 Hyaline Casts 0.81 /lpf 06/19/24 22:19 Nasal MRSA (PCR) Not detected (Not Detecte) 06/23/24 06:50 Coronavirus (PCR) Negative (Negative) 06/19/24 20:35 Influenza A (PCR) Negative (Negative) 06/19/24 20:35 Influenza Type B (PCR) Negative (Negative) 06/19/24 20:35 RSV (PCR) Negative (Negative) 06/19/24 20:35 Vitals Last Vital Signs Temp 97.8 F 06/23/24 07:40 Pulse 89 06/23/24 07:40 Resp 18 06/23/24 07:40 BP 139/92 06/23/24 04:00 Pulse Ox 95 06/23/24 07:40 O2 Del Method Nasal Cannula 06/23/24 07:40 O2 Flow Rate 2 06/23/24 08:00 Discharge Plan Discharge Patient Disposition: Home Condition: Stable Prescriptions: New benzonatate 100 mg Capsule 200 mg PO Q8H PRN (Reason: Cough) Qty: 10 0RF prednisone 20 mg tablet 40 mg PO DAILY 4 Days Qty: 16 0RF levofloxacin 750 mg tablet 750 mg PO DAILY 3 Days Qty: 3 0RF Anoro Ellipta 62.5-25 mcg/actuation blister with device 1 inh inhalation DAILY Qty: 60 0RF ipratropium-albuterol 0.5 mg-3 mg(2.5 mg base)/3 mL solution for nebulization 3 ml inhalation Q8H Qty: 90 0RF budesonide 0.5 mg/2 mL Suspension For Nebulization 0.5 mg inhalation BID.RESPIRATORY Qty: 60 0RF metoprolol tartrate 25 mg Tablet 25 mg PO BID@0900,2100 Qty: 60 0RF prednisone 10 mg tablet See Taper PO DIRECTED Qty: 42 0RF Taper: predniSONE 60-10 60 mg Daily for 2 Days and 0 Hour 50 mg Daily for 2 Days and 0 Hour 40 mg Daily for 2 Days and 0 Hour 30 mg Daily for 2 Days and 0 Hour 20 mg Daily for 2 Days and 0 Hour 10 mg Daily for 2 Days and 0 Hour Rx Instructions: see taper instructions Continued potassium chloride [Klor-Con 10] 10 mEq tablet extended release 10 meq PO DAILY Qty: 30 2RF furosemide 20 mg tablet 20 mg PO DAILY Qty: 30 2RF omega-3 fatty acids 1,000 mg capsule 1,000 mg PO DAILY Qty: 90 0RF multivitamin [Daily Multi-Vitamin] Tablet 1 tab PO DAILY aspirin 81 mg Tablet,Delayed Release (Dr/Ec) 81 mg PO DAILY albuterol sulfate 90 mcg/actuation HFA aerosol inhaler 2 puff inhalation QID PRN (Reason: shortness of breath or wheezing) Qty: 6.7 0RF Changed losartan 50 mg tablet 100 mg PO DAILY Qty: 90 3RF Discontinued albuterol sulfate 2.5 mg /3 mL (0.083 %) solution for nebulization 2.5 mg inhalation QID PRN (Reason: shortness of breath or wheezing) Qty: 75 5RF Discharge Orders: Discharge Order (Routine); Ordered 06/23/24 Ordered By: Cole Guerrero Other Ambulatory Orders: DME: Oxygen (Order) Location: None Selected Ordered By: Suzanne Altman Referrals: Michelle Tobar FNP-C [Primary Care Provider] - 06/25/24 2:00 pm (APPOINTMENT AT [facility] [phone]) Kitty Garcia MD [Occupational Therapist] - 7-10 days (We have notified your physician's clinic of the need for a follow-up appointment to be scheduled. If you have not heard from them within the next 2 business days, please call them directly. SENT REFERRAL) Discharge Diet: Cardiac Discharge Activity: Oxygen as instructed Patient Instructions: Benzonatate (By mouth), Prednisone (By mouth), Amlodipine (By mouth), Levofloxacin (By mouth), Ipratropium/Albuterol (By breathing), Umeclidinium/Vilanterol (By breathing) (Anoro Ellipta), COPD (Chronic Obstructive Pulmonary Disease) (GEN), Hypertension (GEN), Hypoxemia (GEN), Opioid Safety Activity Restrictions/Additional Instructions: Take prednisone taper as prescribed. You should have pulmonary function test with your primary care provider. Follow-up with a primary care provider within next 1 week. For now continue nebulization treatment with DuoNeb and Pulmicort for next 2 weeks. DuoNeb will be 3 times a day and Pulmicort will be twice daily. After you are done with the steroid taper you can start your inhaler as before. Your losartan has been increased to 100 mg daily. Metoprolol 25 mg twice daily has been added to your medication list. Check your blood pressure daily at home maintain a blood pressure diary. Goal blood pressures less than 140/90 mmHg. Discharge Attestations Time Spent in Discharge Care*: greater than 30 min Specific Discharge Activities: educating patient, educating and/or supporting family/caregiver, discussing with pcp/other providers, discussing with case picker/social workers/dc planners, documenting/other paperwork and evaluating patient/reviewing data Status at Discharge: Cognitive status at discharge: cognitively intact, Behavioral status at discharge: cooperative, Functional status at discharge: independent ambulation, Overall status at discharge: patient is progressing back to baseline Quality Metrics Clinical Quality Measures [ No reported AMI, CVA or VTE this stay] Coding Level of Care Code 90153 Total time (in minutes) for Discharge: 60 Diagnoses Hypoxemia R09.02 COPD with acute exacerbation J44.1 Hypertension I10
[2024-06-23] MEDS: ALPRAZolam 0.5 mg Tablet PO (12:22)
[2024-06-23] MEDS: FUROsemide 10 mg/mL SDV 2mL 20 MG IVP (12:56)
== END 2024-06-23 13:41 | disposition home or self-care (01) | DRG 192 ==
LOC: ER 21:07 → MEDSURG 21:45
PROVIDERS: Internal Medicine; Admitting Provider Internal Medicine; Emergency Provider Emergency Medicine; PCP Nurse Practitioner Family; Visit Provider Student in an Organized Health Care Education/Training Program
DX: J44.1 Chronic obstructive pulmonary disease with (acute) exacerbation (principal); R09.02 Hypoxemia; I10 Essential (primary) hypertension; Z87.891 Personal history of nicotine dependence; Z79.82 Long term (current) use of aspirin; Z86.16 Personal history of COVID-19
CPT/HCPCS: 36415; 36600; 71045; 71275; 80048; 80051; 80053; 80061; 81001; 82330; 82607; 82746; 82805; 83036; 83540; 83550; 83605; 83735; 83880; 84100; 84145; 84443; 84484; 85025; 85378; 86140; 87040; 87637; 93005; 93306; 94640; 94760; 94762; 96372; 96374; 99285; G0378; J0360; J1650; J1940; J1956; J2060; J2919; J7030; J7613; J7614; J7626; J7644

== ENCOUNTER 2024-07-14 09:40 | Outpatient (CLI) | payer MEDICARE, BC, SELFPAY ==
[2024-07-14 10:05] VITALS: PULSE 82; RESP 18; O2SAT 95
[2024-07-14] MEDS: albuterol 2.5 mg/3 mL Neb INHALATION (10:05)
[2024-07-14 10:10] VITALS: PULSE 84
== END 2024-07-14 09:41 | disposition home or self-care (01) ==
LOC: RT 09:43
PROVIDERS: PCP Nurse Practitioner Family; Visit Provider Nurse Practitioner Family
DX: J44.9 Chronic obstructive pulmonary disease, unspecified (principal); R93.89 Abnormal findings on diagnostic imaging of other specified body structures
CPT/HCPCS: 94060; 94729; J7613

== ENCOUNTER → 2024-10-07 09:48 | Outpatient (BNVA) | payer MEDICARE, BC, SELFPAY | PROVIDERS: PCP Nurse Practitioner Family; Visit Provider Nurse Practitioner Family | DX: I10 Essential (primary) hypertension (principal); J44.1 Chronic obstructive pulmonary disease with (acute) exacerbation; E11.9 Type 2 diabetes mellitus without complications; Z99.81 Dependence on supplemental oxygen | CPT/HCPCS: 80053; 80061; 83036; 84443; 85025 ==

== ENCOUNTER → 2024-10-29 09:57 | Outpatient (BNVA) | payer MEDICARE, BC, SELFPAY | PROVIDERS: PCP Nurse Practitioner Family; Visit Provider Nurse Practitioner Family | DX: D72.829 Elevated white blood cell count, unspecified (principal) | CPT/HCPCS: 80503; 85025 ==

== ENCOUNTER → 2025-01-04 11:12 | Outpatient (BNVA) | payer MEDICARE, BC, SELFPAY | PROVIDERS: PCP Nurse Practitioner Family; Visit Provider Nurse Practitioner Family | DX: E11.9 Type 2 diabetes mellitus without complications (principal); I10 Essential (primary) hypertension | CPT/HCPCS: 80053; 80061; 83036; 84443; 85025 ==

== ENCOUNTER → 2025-03-16 10:29 | Outpatient (BNVA) | payer MEDICARE, BC, SELFPAY | PROVIDERS: PCP Nurse Practitioner Family; Referring Provider Nurse Practitioner Family; Visit Provider Internal Medicine | DX: J44.89 Other specified chronic obstructive pulmonary disease (principal); J96.10 Chronic respiratory failure, unspecified whether with hypoxia or hypercapnia; Z87.891 Personal history of nicotine dependence; T78.40XA Allergy, unspecified, initial encounter; X58.XXXA Exposure to other specified factors, initial encounter; J44.9 Chronic obstructive pulmonary disease, unspecified | CPT/HCPCS: 82103; 85025; 86003; 99204; Q3014 ==

== ENCOUNTER → 2025-04-27 09:26 | Outpatient (BNVA) | payer MEDICARE, BC, SELFPAY | PROVIDERS: PCP Nurse Practitioner Family; Visit Provider Internal Medicine | DX: J44.89 Other specified chronic obstructive pulmonary disease (principal); J96.10 Chronic respiratory failure, unspecified whether with hypoxia or hypercapnia; Z99.81 Dependence on supplemental oxygen; Z12.2 Encounter for screening for malignant neoplasm of respiratory organs; Z87.891 Personal history of nicotine dependence | CPT/HCPCS: 99214; Q3014 ==